=== PATIENT | female | born 1945 | race Caucasian/White ===

== ENCOUNTER 2019-01-27 08:38 | Day surgery (SDC) | payer OTHER, MEDICAID ==
--- NOTE | 2019-01-26 09:04 | GHP ---
[f rep st] PREOP HISTORY AND PHYSICAL DATE OF ADMISSION: 01/27/2019 CHIEF COMPLAINT: Basal cell carcinoma on the right ear and left upper back. HISTORY OF PRESENT ILLNESS: The patient is a 73-year-old female who presents for surgical evaluation of a skin lesion on her right ear, as well as her left upper back. She reports that the lesions hav e been present for several months. They were recently both biopsied at [facility] with Dr. Miguel Rao. Pathology report from the right helix revealed basal cell carcinoma, nodular type, involving th e deep and peripheral biopsy margins. Pathology report of the left upper back lesion revealed basal cell carcinoma, infiltrative type, involving the deep peripheral biopsy margins. PAST MEDICAL HISTORY: Diabetes, anxiety, osteoarthritis, hypertension, GERD, hypercholesterolemia, o steoporosis, depression, glaucoma, psoriasis, carcinoma in situ of cervix uteri. PAST SURGICAL HISTORY: Right mastoid process surgery at age 4. SOCIAL HISTORY: Patient is a current smoker. She smokes 1 pack per day. MEDICATIONS: Prozac 20 mg, Klonopin 0.5 mg, ProAir HFA 90 mcg per actuation, Advair Diskus, ketocona zole 2% shampoo, triamcinolone cream, Atrovent HFA, lisinopril 5 mg, omeprazole 20 mg, nabumetone 750 mg, Fosamax 70 mg, oxybutynin, atorvastatin 20 mg. REVIEW OF SYSTEMS: Ten-point review of systems was performed, was negative aside from what is in the HPI. PHYSICAL EXAM: GENERAL: Chronically ill-appearing female sitting comfortably in a wheelchair in the office in no acute distress. HEENT: Normocephalic, atraumatic. No gross hearing deficits. Mucous membranes are moist. PERRLA. PSYCHIATRIC: Appropriate mood and affect. NEUROLOGICAL: Alert and oriented x3. CARDIAC: Regular rate and rhythm. No clicks, murmurs, or rubs. CHEST: Clear to ausc ultation bilaterally. No crackles, rales, or rhonchi. ABDOMEN: Soft, nontender, nondistended. SKI N: Brown, scaly area of skin posterior to the right ear that has ulcerated through the triangular fo ssa. Tender to palpation. There is also an approximately 2 x 2 cm skin lesion on the left upper mauro k with a rolled border and an ulcerated center. MUSCULOSKELETAL: Moves all extremities equally. IMPRESSION/PLAN: The patient is a 73-year-old female with 2 skin lesions that are biopsy proven to b e basal cell carcinoma. She will need wide local excisions of each lesion. Given that her right ear lesion has spread across most of her ear, surgery will leave her with a deformity. She will also li lino need a split-thickness skin graft to cover the area after it was excised. It is possible that s he will be able to have reconstruction surgery with a plastic surgeon in the future. Her left upper back skin lesion will likely not need a skin graft. We have discussed all risks and options. Risks of surgery include, but are not limited to infection, bleeding, need for further surgery, recurrence, heart attack, and . Patient understands and wishes to proceed. /[id number]/MODL
[~2019-01-27 08:38] MED LIST: LR 1,000 ML IV ONE; ceFAZolin 2 GM/DEXTROSE 100 ML IV ONE
[2019-01-27] MEDS ORDERED: BUPIVACAINE/EPI 0.5% 30 ML SDV ONE (09:17)
[2019-01-27] MEDS ORDERED: BUPIVACAINE 0.5% 30 ML SDV ONE (09:17)
[2019-01-27] MEDS ORDERED: THROMBIN (BOVINE) 20,000 UNIT VIAL TP ONE (09:18)
[2019-01-27] MEDS ORDERED: MINERAL OIL 10 ML VIAL ONE (09:18)
[2019-01-27 09:32] LABS: PLATELET COUNT 293 10^3/uL (150-400)
--- NOTE | 2019-01-27 10:29 | PDANEPAE ---
ANE History of Present Illness basal cell ca ANE Past Medical History - Cardiovascular History Hx Hypertension: Yes Hx Arrhythmias: No Hx Chest Pain: No Hx Coronary Artery / Peripheral Vascular Disease: No Hx CHF / Valvular Disease: No Hx Palpitations: No - Pulmonary History Hx COPD: Yes Hx Asthma/Reactive Airway Disease: No Hx Recent Upper Respiratory Infection: Yes Hx Oxygen in Use at Home: No Hx Sleep Apnea: No Sleep Apnea Screening Result - Last Documented: Negative Pulmonary History Comment: cold started 7 days ago, coughs, will call dr - Neurologic History Hx Cerebrovascular Accident: No Hx Seizures: No Hx Dementia: No Neurologic History Comment: falls yrs ago, fell in bathroom, mild concussion - Endocrine History Hx Diabetes: No Hypothyroid: No Hyperthyroid: No Obesity: no Endocrine History Comment: lost weight no longer diabetic - Renal History Hx Renal Disorders: No Renal History Comment: urinary incontinence - Liver History Hx Hepatic Disorders: No - Neurological & Psychiatric Hx Hx Neurological and Psychiatric Disorders: Yes Neurological / Psychiatric History Comment: depression - Cancer History Hx Cancer: Yes Cancer History Comment: skin back, ear - Congenital Disorder History Hx Congenital Disorders: No - GI History GERD: no Hx Gastrointestinal Disorders: No - Other Health History Other Health History: psoriasis. macular degeneration, right shoulder dislocated , OA - Chronic Pain History Chronic Pain: Yes (generalized arthritis) - Surgical History Prior Surgeries: mastoid surgery right age 4,. T.L., hernia with mesh, failed shoulder repair ANE Review of Systems Review of systems is: negative Review of Systems: - Exercise capacity METS (RN): 3 METS ANE Patient History - Allergies Allergies/Adverse Reactions: No Known Allergies Allergy (Verified 01/05/19 16:02) - Home Medications Home medications: home medication list seen and reviewed Home Medications: Aspirin 81mg (*) 01/05/19 [Last Taken 01/05/19] Atorvastatin Calcium 01/05/19 [Last Taken 01/26/19 08:30] Clonazepam 01/05/19 [Last Taken 01/26/19 08:30] FLUoxetine 01/05/19 [Last Taken 01/26/19 09:00] Herbals/Supplements -Info Only 01/05/19 [Last Taken 01/13/19] Lisinopril 5 mg PO DAILY 01/05/19 [Last Taken 01/26/19 09:00] Nabumetone 01/05/19 [Last Taken 01/26/19 09:00] Omeprazole 01/05/19 [Last Taken 01/26/19 09:00] Oxybutynin 01/05/19 [Last Taken 01/26/19 09:00] Tylenol 01/05/19 [Last Taken 01/26/19 09:00] Ultram 01/05/19 [Last Taken 01/26/19 08:30] - NPO status NPO Status: no food or drink >8 hours NPO Since - Liquids (Date): 01/26/19 NPO Since - Liquids (Time): 23:30 NPO Since - Solids (Date): 01/26/19 NPO Since - Solids (Time): 18:30 - Anes Hx Anes Hx: no prior problems - Smoking Hx Smoking Status: Current every day smoker - Family Anes Hx Family Anes Hx: none Family Hx Anesthesia Complications: none ANE Labs/Vital Signs - Labs Result Diagrams: 01/27/19 09:15 - Vital Signs Blood Pressure: 149/74 Heart Rate: 57 Respiratory Rate: 18 O2 Sat (%): 94 Height: 152.4 cm Weight: 67.132 kg ANE Physical Exam - Airway Neck exam: FROM Mallampati Score: Class 2 Mouth exam: normal dental/mouth exam - Pulmonary Pulmonary: no respiratory distress, inspiratory crackles - Cardiovascular Cardiovascular: regular rate and rhythym, no murmur, rub, or gallop - ASA Status ASA Status: III ANE Anesthesia Plan Anesthesia Plan: GA w LMA
[2019-01-27] MEDS ORDERED: PROPOFOL 200 MG/20 ML VIAL ONE (10:34)
[2019-01-27] MEDS ORDERED: fentaNYL 100 MCG/2 ML INJ ONE ×2 (10:34→12:44)
[2019-01-27] MEDS ORDERED: LIDOCAINE 2% 2 ML INJ ONE (10:36)
[2019-01-27] MEDS ORDERED: ONDANSETRON 4 MG/2 ML VIAL ONE (11:20)
[2019-01-27] MEDS ORDERED: MIDAZOLAM 2 MG/2 ML VIAL ONE (11:37)
[2019-01-27] MEDS ORDERED: ONDANSETRON 4 MG/2 ML VIAL IVP PRN (11:52)
[2019-01-27] MEDS ORDERED: PHENYLEPHRINE HCL 100 MCG/ML SYR IVP PRN (11:52)
[2019-01-27] MEDS ORDERED: NALOXONE HCL 0.4 MG/ML INJ IVP PRN (11:52)
--- NOTE | 2019-01-27 11:54 | POSTANESTH ---
Post Anesthetic Evaluation Cardiovascular Status: Normal, Stable Respiratory Status: Normal, Stable Level of Consciousness/Mental Status: Can Participate in Eval Pain Control: Adequate, Prn Tx Ordered Nausea/Vomiting Control: Adequate, Prn Tx Ordered Complications Possibly Related to Anesthesia: None Noted
[2019-01-27] MEDS ORDERED: ePHEDrine SULFATE 25 MG/5 ML SYR ONE (12:02)
--- NOTE | 2019-01-27 12:37 | POSTOPPROG ---
Post Op Note Date of Operation: 01/27/19 Surgeon: Elmer Dang Bank Boss: Silvano Anesthesiologist: Merced Anesthesia: GET(General Endotracheal) Pre-op Diagnosis: BCC Post-op Diagnosis: same Indication: same Procedure: WLE left upper back and R ear lesions, FTSG from neck to R ear Inf/Abcess present in the surg proc area at time of surgery?: No Depth: Deep Incisional (Fascial) EBL: 50-100 Bowel Protocol: N/A Clean Closure Performed: N/A Specimen(s): Back lesion- permanent R ear lesion- permanent
[2019-01-27] MEDS: fentaNYL 100 MCG/2 ML INJ IVP PRN ×3 (12:46→13:59)
--- NOTE | 2019-01-27 13:03 | CPEKG ---
Test Reason : OPEN Blood Pressure : / mmHG Vent. Rate : 056 BPM Atrial Rate : 055 BPM P-R Int : 198 ms QRS Dur : 084 ms QT Int : 464 ms P-R-T Axes : 074 010 059 degrees QTc Int : 448 ms Sinus rhythm Confirmed by Gage Greco ([id number]) on 01/27/2019 1:03:04 PM Referred By: Elmer Dang Confirmed By:Gage Greco
[2019-01-27] MEDS ORDERED: OXYCODONE/APAP 5/325 TAB PO ONE (14:45)
[2019-01-27 15:17] VITALS: BP 163/76
--- NOTE | 2019-01-28 12:12 | GOP ---
[f rep st] OPERATIVE REPORT DATE OF OPERATION: 01/27/2019 SURGEON: Elmer Dang MD FACTORY SUPERINTENDENT: Mercedez Schaefer NP. ANESTHESIOLOGIST: Dr. Blackwood. PREOPERATIVE DIAGNOSIS: 1. Basal cell cancer of the upper back. 2. Invasive basal cell cancer of the upper right pinna and scalp. POSTOPERATIVE DIAGNOSIS: SAME PROCEDURE PERFORMED: WIDE EXCISION OF A SCALP AND EAR BASAL CELL CANCER WITH PARTIAL PINNECTOMY AND CLOSURE WITH FULL-THICKNESS SKIN GRAFT WIDE EXCISION OF A BACK BASAL CELL CANCER WITH ADVANCEMENT FLAP CLOSURE FINDINGS: The patient was found to have a 4 cm basal cell cancer involving the upper half and base of the right pinna invading into the scalp, but not into the temporalis muscle. She also had a 4 cm basal cell cancer in the upper mid portion of the back. DESCRIPTION OF PROCEDURE: The patient was taken to the operating room where she received satisfactory general endotracheal anesthesia by Dr. Blackwood. She was placed in the prone position, but slightly lateral. An elliptical skin incision was made to excise the area on her back with a good margin all around. Full-thickness excision was done including the muscle fascia. Hemostasis was obtained with electrocautery. The skin flaps were elevated, advanced and closed directly to with 3-0 Vicryl subcutaneous sutures and skin zoraida for the skin. The wound was infiltrated with 0.5% Marcaine. She tolerated the procedure well. Attention was then turned to the ear lesion. The necrotic, eroding lesion was widely excised over the temporal portion of the scalp. Full-thickness excision was done down to and including the temporalis fascia. Branches of the temporal artery were controlled with hemoclips or 3-0 Vicryl suture ligatures. The lesion was completely encircled and then the upper half of the pinna was divided directly across and the dissection again extended right down to the muscle fascia and including the muscle fascia and the lesion was completely excised. It was a 6 x 3 x 3 cm lesion. Hemostasis was carefully obtained. The wound edges were undermined and advanced where possible and the subcu was closed with interrupted 3-0 Vicryl sutures. The skin was closed with some 3-0 Monocryl subcuticular stitches where possible. The remainder of the wound was then covered by harvesting a full-thickness skin graft from the back of the neck. This was widely excised, defatted and then placed over the defect. It was anchored in place with multiple 3-0 silk sutures and skin zoraida. The wound was dressed with Xeroform gauze and a cotton bolster, and these sutures were tied over the bolster. It was then covered up with 4 x 4's and OpSite. The donor site was closed with a running 3-0 Vicryl suture for the subcu and skin zoraida for the skin. All wounds were dressed. There were no drains. She tolerated the procedure well and taken to the recovery room in good condition. All wounds were infiltrated with 0.5% Marcaine. There were no complications. /[id number]/MODL MTDD
== END 2019-01-27 15:15 | disposition home or self-care (01) ==
LOC: FSGY 08:38
PROVIDERS: ATTEND Surgery
PROC: 0HX6XZZ Transfer Back Skin, External Approach (ICD-10-PCS; principal; 2019-01-27 09:45)
PROC: 0HB4XZZ Excision of Neck Skin, External Approach (ICD-10-PCS; principal; 2019-01-27 09:45)
PROC: 0HB6XZZ Excision of Back Skin, External Approach (ICD-10-PCS; principal; 2019-01-27 09:45)
PROC: 0HR0X73 Replacement of Scalp Skin with Autologous Tissue Substitute, Full Thickness, External Approach (ICD-10-PCS; principal; 2019-01-27 09:45)
PROC: 0HR2X73 Replacement of Right Ear Skin with Autologous Tissue Substitute, Full Thickness, External Approach (ICD-10-PCS; principal; 2019-01-27 09:45)
DX: C44.212 Basal cell carcinoma of skin of right ear and external auricular canal (principal); C44.519 Basal cell carcinoma of skin of other part of trunk; E11.9 Type 2 diabetes mellitus without complications; F41.9 Anxiety disorder, unspecified; I10 Essential (primary) hypertension; K21.9 Gastro-esophageal reflux disease without esophagitis; E78.00 Pure hypercholesterolemia, unspecified; M81.0 Age-related osteoporosis without current pathological fracture; L40.9 Psoriasis, unspecified
CPT/HCPCS: J0690; J2250; J2405; J2704; J3010